=== PATIENT | female | born 1985 | race Caucasian/White ===

== ENCOUNTER 2018-08-05 18:17 | Emergency (ER) | payer SELFPAY ==
[~2018-08-05] VITALS: Ht 157.5 cm; Wt 45.8 kg
--- NOTE | 2018-08-05 18:45 | NUR ---
PATIENT ARRIVED AT UNIT WITH C/O DYSURIA, URGENCY X 1 WEEK. PATIENT ALERT AND ORIENTED X 4, NO ACUTE DISTRESS. RESTING ON BED. AWAITING
[2018-08-05 18:46] LABS: APPEARANCE,URINE Clear (CLEAR); BILIRUBIN,URINE Negative (NEGATIVE); BLOOD, URINE Negative Ery/uL (NEGATIVE); COLOR,URINE Yellow (YELLOW); KETONES,URINE 15 (NEGATIVE); LEUKOCYTE ESTERASE ,URINE Negative (NEGATIVE); NITRITE, URINE Negative (NEGATIVE); PROTEIN,URINE Negative (NEGATIVE); UGLUCOSE Negative (NEGATIVE); UROBILINOGEN,URINE 0.2 EU/dL (0.2)
[2018-08-05] MEDS ORDERED: PHENAZOPYRIDINE HCL 200 MG TABLET ONE (18:52)
[2018-08-05] MEDS ORDERED: PHENAZOPYRIDINE HCL 200 MG TABLET PO ONE (19:00)
[2018-08-05 19:02] LABS: BACTERIA,URINE Few /HPF (None Seen); RBC,URINE 0-2 /HPF (0-2); SQUAMOUS EPITHELIAL CELL,UR Few /HPF (None Seen); WBC,URINE 0-2 /HPF (0-3)
--- NOTE | 2018-08-05 19:10 | NUR ---
PT RECEIVED FROM CHARLES ZHU FOR YANCI. PT IN BED AAOX4. NAD.
--- NOTE | 2018-08-05 19:21 | NUR ---
PATIENT RESTING ON BED. NO ACUTE DISTRESS. REPORT GIVEN TO GEORGE SOTO FOR YANCI
--- NOTE | 2018-08-05 19:28 | NUR ---
Patient discharged to home in stable condition. Written and verbal after care instructions given. Patient verbalizes understanding of instruction. Pt ambulatory with a steady gait
[2018-08-05 19:29] VITALS: BP 105/68
== END 2018-08-05 19:31 | disposition home or self-care (01) ==
LOC: ER 18:20
DX: R30.0 Dysuria (principal)
CPT/HCPCS: 81000-TC; 84703-TC; 87086-TC

== ENCOUNTER 2019-06-15 02:30 | Emergency (ER) | payer SELFPAY ==
[~2019-06-15] VITALS: Ht 157.5 cm; Wt 49.9 kg
--- NOTE | 2019-06-15 02:45 | NUR ---
URINE SPECIMEN COLLECTED AND SENT TO LAB
--- NOTE | 2019-06-15 02:52 | NUR ---
AT BEDSIDE FOR EVAL.
[2019-06-15] MEDS ORDERED: KETOROLAC TROMETHAMINE 15 MG/ML VIAL ONE (02:57)
[2019-06-15] MEDS ORDERED: KETOROLAC TROMETHAMINE INJ 30 MG/ML VIAL IV ONE (03:00)
[2019-06-15 03:37] LABS: APPEARANCE,URINE CLEAR (CLEAR); BILIRUBIN,URINE NEGATIVE (NEGATIVE); BLOOD, URINE SMALL Ery/uL (NEGATIVE); COLOR,URINE YELLOW (YELLOW); KETONES,URINE TRACE (NEGATIVE); LEUKOCYTE ESTERASE ,URINE NEGATIVE (NEGATIVE); NITRITE, URINE NEGATIVE (NEGATIVE); PROTEIN,URINE 30 mg/dl (NEGATIVE); UGLUCOSE NEGATIVE (NEGATIVE); UROBILINOGEN,URINE 0.2 EU/dL (0.2)
[2019-06-15 03:53] LABS: BACTERIA,URINE Few /HPF (None Seen); SQUAMOUS EPITHELIAL CELL,UR Few /HPF (None Seen); WBC,URINE 0-2 /HPF (0-3)
[2019-06-15 03:54] LABS: MUCUS,URINE Few /LPF (None Seen)
--- NOTE | 2019-06-15 04:47 | NUR ---
US at bedside
--- NOTE | 2019-06-15 06:00 | NUR ---
IV removed. Catheter intact and site benign. Pressure and 4x4 applied to site. No bleeding noted. Patient discharged to home in stable condition. Written and verbal after care instructions given. Patient verbalizes understanding of instruction. ambulatory with a steady gait
--- NOTE | 2019-06-15 06:00 | NUR ---
IV removed. Catheter intact and site benign. Pressure and 4x4 applied to site. No bleeding noted.
[2019-06-15 06:01] VITALS: BP 129/81
--- NOTE | 2019-06-15 06:01 | NUR ---
Patient discharged to home in stable condition. Written and verbal after care instructions given. Patient verbalizes understanding of instruction and RX. Pt ambulated with steady gait. VSS. No acute distress noted.
== END 2019-06-15 06:01 | disposition home or self-care (01) ==
LOC: ER 02:33
DX: R10.32 Left lower quadrant pain (principal); Z91.030 Bee allergy status; Z60.2 Problems related to living alone
CPT/HCPCS: 76856; 81001; 84703; 96374; 99284; J1885; 81000-TC